=== PATIENT | female | born 1960 | race Caucasian/White ===

== ENCOUNTER 2017-02-23 10:45 | Day surgery (SDC) | payer OTHER ==
[2017-02-23] VITALS (8 sets, daily range): BP systolic 120–134; BP diastolic 58–74; PULSE 71–83; RESP 10–18; O2SAT 92–100
[~2017-02-23] VITALS: Ht 165.1 cm; Wt 99.6 kg
[~2017-02-23 10:45] MED LIST: CeFAZolin 2 Gm/50 mL D5W IV Premix IV ONE; IBUP-1827 PO; Lactated Ringer's 500 ML IV SCH; OXYC1TAB24 PO
[2017-02-23] MEDS ORDERED: Dexamethasone 4 mg/mL Inj ONE (10:46)
[2017-02-23] MEDS ORDERED: fentaNYL-PF 50 mCg/mL 2 mL Inj ONE (10:46)
[2017-02-23] MEDS ORDERED: Propofol 10,000 mCg/mL 20 mL Inj ONE (10:46)
[2017-02-23] MEDS ORDERED: Ondansetron 2 mg/mL 2 mL Inj ONE (10:46)
[2017-02-23] MEDS ORDERED: Lactated Ringer's 1,000 ML IV ONE (10:54)
[2017-02-23] MEDS ORDERED: CeFAZolin Inj 2 gm / 50mL D5W IV ONE (11:08)
--- NOTE | 2017-02-23 11:22 | PCM.HPANE ---
Patient Data Date of Service: Feb 23, 2017 Surgeon Admitting Provider: Attending Provider:Deny Rivera DO Primary Care Physician:Lon Andrade MD Other Provider:Ruperto Gutierrez Anesthesia Reason for Visit 3-Part Intra-Articular Right Distal Radius Fx Ht/WT & BMI Height (Feet): 5 Height (Inches): 5 Weight (Kilograms): 100.42 Body Mass Index 36.00, 36.00 Allergies Coded Allergies: No Known Allergies (Unverified , 02/21/17) Past Anesthesia History Anesthesia History: Denies:: Abnormal Airway, Anesthesia Reactions, Difficult Intubation, Fam Anesthesia Reaction, Fam Malignant Hypertherm, Malignant Hyperthermia Diabetes History Hx Diabetes?: No MRSA MRSA: No Medications Hypertension Medication: No Home Meds Incl Beta Linwood: No Reported Medications oxyCODONE-Acetaminophen 5-325 mg 1 Each Tablet1 Tab PO Q6H PRN For Pain Ref 0 02/22/17 Ibuprofen 600 Mg [id number] Mg PO TID PRN For Pain Ref 0 02/22/17 History History of ENT Problems?: Yes HEENT History: Positive for:: Cataracts (bilateral) Sinus Problem (hx of sinus surgery) Denies:: Abnormal Airway Difficult Intubation Dysphagia Glaucoma Hearing Problem TMJ Denture Type: None Teeth Condition: Within Normal Limits Hx of Heart Problems?: No Cardiovascular History: Denies:: AICD Abdominal Aortic Aneurism Cardiac Surgery Chest Pain Coronary Artery Disease Edema Heart Murmur Hypertension Irregular Heartbeat Pacemaker Hx of Respiratory Problem?: No Respiratory History: Denies:: Asthma COPD Emphysema Oxygen Administration Pneumonia Use of C-PAP Machine (declined sleep study- could not tolerate CPAP) Use of Inhalers / NEBS Hx Neurologic Problems?: No Neurological History: Denies:: CVA Multiple Sclerosis Parkinson's Disease Seizures Hx of GI Problems?: No Hx of Problems?: Yes Genitourinary History: Positive for:: Kidney Stones (remote hx of - passed spontaneously) Denies:: Urinary Tract Infection Female Hx: Denies:: Currently (hysterectomy) Problems with Breasts? Hx Musculoskeletal Problems?: Yes Musculoskeletal History: Positive for:: Musculoskeletal Trauma (right radius fx current admission problem) Denies:: Back Injury Fibromyalgia Joint Replacement Osteoarthritis Systemic Lupus Hx of Psycho/Social Problems?: No Psycho Social History: Denies:: Anxiety Hx Depression Hx Surgeries?: Yes (tonsil, hyst, sinus, right ankle ORIF) Hx Any Other Health Problems?: Yes Other History: Positive for:: Cancer (BCC) Denies:: Thyroid Disease History Blood Transfusions: Denies:: Blood Transfuse Reaction Blood Transfusions Hx Diabetes: No Hx Alcohol Use: YesAlcoholic Drinks Per Day: 1 drink weeklyHx Substance Use: NoHave You Smoked inLast 12 mo: No Stop/Bang S-Snoring: Do You Snore Loudly: Yes T-Tired: feel tired, fatigued: No O-Obsered: Observed not breath: No P-Blood Pressure: treated: No B- Body Mass Index > 35 kg/m2: Yes A- Age over 50: Yes N- Neck Large Circumference: No G- Gender Male: No CORKY Total Score: 3 CORKY Risk Assessment: High Risk, =/>3 Yes CORKY Category 2: Yes Risk Assessment Category Category 1A: Patient has history of documented sleep apnea, and HAS NOT received any narcotic, sedative or anesthesia administration during this stay. Category 1B: Patient has history of documented sleep apnea, and HAS received any narcotic , sedative or anesthesia administration during this stay Category 2: Patient has SUSPECTED Obstructive Sleep Apnea, and HAS received any narcotic , sedative or anesthesia administration during this stay. Category 3: Patient has SUSPECTED Obstructive Sleep Apnea and HAS NOT received narcotic, sedative or anesthesia administration during this stay. Category 4: Outpatient in Procedural Areas with known sleep apnea or who screen positive for High Risk via the STOP/BANG questionnaire. Exam Exam General Appearance: Alert, Oriented X3, Cooperative, No Acute Distress HEENT/AIRWAY: MP 2 Lungs: Clear to Auscultation Heart: Regular Rate/Rhythm, No Murmurs/Rubs/Gallops Meds/Labs/Diagnostics Admission Meds Current Medications Lactated Ringer's (Lr) 1,000 ml @ ud STK-MED ONCE IV Last administered on 02/23t 10:54; Start 02/23/17 at 10:54; Stop 02/23/17 at 10:55; Status DC Plan Impression Patient chart reviewed, patient interviewed and anesthestic plan with risks, benefits, and alternatives discussed, and informed consent obtained. NPO per Anesth. Guidelines: Yes ASA Physical Status: ASA2 Mod Systemic Disease Anesthetic Plan: GA Bene/Risks/Altern/Consents: Yes HP Complete Prior to Induction: Yes Margarito Chauhan DO Feb 23, 2017 11:22
[2017-02-23] MEDS ORDERED: Lidocaine 1%-Epi 1:100,000 20 mL Inj INFILTRATE ONE (12:20)
[2017-02-23] MEDS ORDERED: Lactated Ringer's 1,000 ML IV SCH (12:34)
[2017-02-23] MEDS ORDERED: Lactated Ringer's 500 ML IV PRN (12:34)
[2017-02-23] MEDS ORDERED: MetoCLOpramide 5 mg/mL 2 mL Inj IVPUSH PRN (12:35)
[2017-02-23] MEDS ORDERED: Dexamethasone 4 mg/mL Inj IVPUSH PRN (12:35)
[2017-02-23] MEDS ORDERED: HYDROmorphone 1 mg/mL Inj IVPUSH PRN (12:35)
[2017-02-23] MEDS ORDERED: Phenylephrine 10,000 mCg/mL Inj IVPUSH PRN (12:35)
[2017-02-23] MEDS ORDERED: EPHEDrine Sulfate 50 mg/mL Inj IVPUSH PRN (12:35)
[2017-02-23] MEDS ORDERED: Ondansetron 2 mg/mL 2 mL Inj IVPUSH PRN (12:35)
[2017-02-23] MEDS: fentaNYL-PF 50 mCg/mL 2 mL Inj IVPUSH PRN ×2 (14:30→14:44)
[2017-02-23] MEDS ORDERED: HYDROcodone-APAP 7.5-325 mg Tablet PO PRN (14:35)
[2017-02-23] MEDS ORDERED: Acetaminophen IV 1,000 MG in IV Premix 1 EACH IV ONE (14:55)
--- NOTE | 2017-02-23 14:56 | PCM.ANEP1 ---
Post Anesthesia PACU Phase 1 Assessment Date of Service: Feb 23, 2017 Vital Signs Vital Signs Date Time Temp Pulse Resp B/P Pulse Ox O2 Delivery O2 Flow Rate FiO2 02/23/17 11:22 36.7 71 18 132/60 100 Room Air Anesthetic Administered: GA Level of Alertness: Awake, talking Pain: Yes Nausea or Vomiting: No CV Function & Hydration Stable: No Airway Device: Oxygen Delivery: Room Air Lungs: Clear to Auscultation PACU Phase 2 Assessment Complications: No Follow up Care: N/A Patient Instructions Provided: N/A Margarito Chauhan DO Feb 23, 2017 14:56
--- NOTE | 2017-02-23 17:41 | OP ---
[address] [address] OPERATIVE REPORT PATIENT: TELMA PHAM : 1960 MR#: [id number] ADMIT: 02/23/2017 JOB ID: [id number] DATE OF SURGERY: 02/23/2017 SURGEON: Deny Rivera DO BORING MACHINE OPERATOR VERTICAL: Mikhail Robles PA-C The assistance of Mikhail Robles PA-C was necessary for help with retraction and manipulation of the comminuted distal radius fracture. PREOPERATIVE DIAGNOSIS(ES): 1. Right three-part intra-articular distal radius fracture. 2. Right ulnar styloid fracture. 3. Right carpal tunnel syndrome. POSTOPERATIVE DIAGNOSIS(ES): 1. Right three-part intra-articular distal radius fracture. 2. Right ulnar styloid fracture. 3. Right carpal tunnel syndrome. PROCEDURE: 1. Open reduction, internal fixation right three-part intra-articular distal radius fracture. 2. Closed treatment of right ulnar styloid fracture. 3. Right open carpal tunnel release. ANESTHESIA: General. HISTORY: The patient is a pleasant, 56-year-old female that fell onto an outstretched right hand sustaining a comminuted displaced distal radius as well as ulnar styloid fracture. At the time she presented to me, she had numbness to the thumb as well as index finger demonstrating signs of acute carpal tunnel syndrome. At the postoperative suite, she continued to have numbness to the thumb and I discussed with the patient, the risks, benefits, and indications to proceed with open reduction, internal fixation of right distal radius fracture and possible fixation of ulnar styloid and open carpal tunnel release. She understood the risks include, but not limited to, neurovascular injury, tendon injury, infection, failure of fixation, stiffness, persistent pain, all of which may require further intervention. Patient had all questions answered. Consent was signed and placed in the chart. PROCEDURE IN DETAIL: The patient was brought to the operative suite and placed supine on the operating room table. Surgical time-out performed and everyone in the room was in agreement. After appropriate anesthesia was obtained, a right upper arm tourniquet was applied and the right upper extremity prepped and draped in a sterile fashion. Right upper extremity then exsanguinated and tourniquet inflated to 250 mmHg. The patient's right carpal tunnel was approached first. A 2 cm longitudinal fissure was made in line with the radial aspect of ring finger, the ulnar aspect of the palmaris longus. The incision was kept distal to the wrist crease and proximal to Castaneda's cardinal line. Subcutaneous tissues were dissected with bipolar electrocautery utilized to maintain hemostasis throughout the procedure. The palmar fascia was first identified and incised longitudinally in line with the skin incision followed by the underlying transverse carpal ligament. Transverse carpal ligament was then released in its entirety to include the full extent of the antebrachial fascia. Copious irrigation was performed followed by closure of skin with 4-0 nylon interrupted fashion. The patient's distal radius was approached next. FCR approach was utilized. The FCR tendon was identified and retracted ulnarly. The subsheath next was incised revealing the underlying flexor pollicis longus, which was further retracted ulnarly. The pronator quadratus was identified and incised off of the distal and radial margin. The fracture site was identified. Manual reduction was performed. The reduction was anatomic and verified under fluoroscopy. A Synthes volar distal radius plate was applied to the volar cortex of the distal radius. It was held provisionally with K-wires with the position of the plate verified under fluoroscopy. A nonlocking screw was placed within the oblong hole of the shaft to pull the plate to the volar cortex of the distal radius. Distal locking screws were then placed to secure the distal fragment. Completion of fixation was performed utilizing a combination of locking and nonlocking screws within the shaft. Final radiographic projections on fluoroscopy utilized to verify anatomic reduction, appropriate placement of the hardware, and appropriate length of the screws. The DRUJ was then next addressed and was found to be stable. Thus decision was made not to repair the ulnar styloid. Copious irrigation was performed followed by closure of the subcutaneous tissues with 4-0 Vicryl and 4-0 nylon for the skin. The patient was then placed in a well-padded, well-molded volar resting splint. ESTIMATED BLOOD LOSS: Less than 5 cc. COMPLICATIONS: None. DISPOSITION: The patient tolerated the procedure well. Anesthesia was reversed. The patient was transferred back to recovery. IMPLANTS: A Synthes volar distal radius plate with a combination of nonlocking and locking screws. POSTOPERATIVE PLAN: The patient will follow up in the office in two weeks for suture removal. She will see Occupational Therapy before the first postoperative visit and have a short-arm brace made. She will be in that brace for four weeks prior to initiating any wrist range of motion exercises. [place]
== END 2017-02-23 23:59 | disposition home or self-care (01) ==
LOC: SAS 10:45
PROVIDERS: ATTEND Orthopaedic Surgery
DX: S52.571A Other intraarticular fracture of lower end of right radius, initial encounter for closed fracture (principal); S52.611A Displaced fracture of right ulna styloid process, initial encounter for closed fracture; G56.01 Carpal tunnel syndrome, right upper limb; W01.0XXA Fall on same level from slipping, tripping and stumbling without subsequent striking against object, initial encounter; Y93.01 Activity, walking, marching and hiking; I10 Essential (primary) hypertension
CPT/HCPCS: 25609; 64721; 76000; C1713; J0131; J0690; J1100; J1885; J2250; J2270; J2405; J3010; J7120